=== PATIENT | female | born 1975 | race African-American/Black ===

== ENCOUNTER 2020-04-29 04:39 | Inpatient (IN) | payer OTHER ==
[~2020-04-29] VITALS: Ht 160 cm; Wt 58.1 kg
[2020-04-29] MEDS ORDERED: SODIUM CHLORIDE 0.9% 1,000 ML IV ONE (04:44)
[2020-04-29] MEDS ORDERED: LORAZEPAM 2MG/ML CPJ IV ONE (04:45)
[2020-04-29] MEDS ORDERED: LEVETIRACETAM 500MG PREMIX 100 ML IV ONE (04:45)
[2020-04-29] MEDS ORDERED: LORAZEPAM 2MG/ML CPJ ONE (04:53)
[2020-04-29 05:12] LABS: CHLORIDE 109 mEq/L (98-107)
[2020-04-29 05:15] LABS: BASOPHILS % 0.7 % (0.0-2.0); EOSINOPHILS % 0.4 % (0.0-5.0); HEMATOCRIT. 43.1 % (36.0-48.0); HEMOGLOBIN. 14.2 g/dL (12.0-16.0); LYMPHOCYTES % 38.1 % (20.0-50.0); MEAN CORPUSCULAR HEMOGLOBIN 30.8 pg (28.0-32.0); MEAN CORPUSCULAR VOLUME 93.7 fL (81.0-99.0); MEAN PLATELET VOLUME 8.7 fl (7.4-10.4); MONOCYTES % 4.6 % (2.0-8.0); NEUTROPHILS % 56.2 % (40.0-76.0); PLATELET 199 x1000/uL (130-400); RED CELL DISTRIBUTION WIDTH 14.3 % (11.6-14.6)
[2020-04-29 05:17] LABS: ETHANOL BLOOD < 10 mg/dL
[2020-04-29 05:19] LABS: CLARITY URINE CLOUDY (CLEAR); COLOR URINE YELLOW (YELLOW); KETONES URINE TRACE (NEGATIVE); LEUKOCYTE ESTERASE URINE NEGATIVE (NEGATIVE); NITRITE URINE NEGATIVE (NEGATIVE); OCCULT BLOOD URINE 2+ (NEGATIVE); PROTEIN URINE 2+ (NEGATIVE); SPECIFIC GRAVITY URINE 1.019 (1.005-1.030); UROBILINOGEN URINE 0.2 E.U./dL (0.2-1.0)
[2020-04-29 05:21] LABS: CREATINE KINASE 373 IU/L (26-192)
[2020-04-29 05:26] LABS: *AMPHETAMINES SCREEN URINE NEGATIVE (NEGATIVE); *BARBITURATES SCREEN URINE NEGATIVE (NEGATIVE); *BENZODIAZEPINES SCREEN URINE NEGATIVE (NEGATIVE)
[2020-04-29 05:27] LABS: *COCAINE SCREEN URINE NEGATIVE (NEGATIVE); METHADONE URINE SCREEN NEGATIVE (NEGATIVE); OPIATES URINE SCREEN NEGATIVE (NEGATIVE); PHENCYCLIDINE URINE SCREEN NEGATIVE (NEGATIVE)
[2020-04-29 05:29] LABS: CANNABINOID URINE SCREEN PRESUMTIVE POSITIVE (NEGATIVE)
[2020-04-29] MEDS ORDERED: ACETAMINOPHEN 325MG TABLET PO PRN (14:45)
[2020-04-29] MEDS ORDERED: CLONIDINE 0.1MG TABLET PO PRN (14:45)
[2020-04-29] MEDS ORDERED: IPRATROPIUM/ALBUTEROL 0.5-3(2.5)MG/3ML NEB HHN PRN (14:45)
[2020-04-29] MEDS ORDERED: ENOXAPARIN 40MG/0.4ML SYR SUBCUT SCH (16:00)
[2020-04-29 16:30] VITALS: BP 128/78
[2020-04-29 16:38] VITALS: BP 128/78
[2020-04-29] MEDS: ONDANSETRON HCL 4MG/2ML INJ IV PRN (17:35)
[2020-04-29] MEDS: HYDROCODONE/ACETAMINOPHEN 5/325MG TABLET PO PRN (19:51)
[2020-04-29 20:00] VITALS: BP 131/80
[2020-04-29] MEDS ORDERED: LEVETIRACETAM 500MG PREMIX 100 ML IV SCH (21:00)
[2020-04-29] MEDS: LORAZEPAM 2MG/ML CPJ IV PRN (21:01)
[2020-04-29] MEDS: LEVETIRACETAM 500MG PREMIX 100 ML IV SCH (22:10)
[2020-04-29 23:44] LABS: CREATINE KINASE 366 IU/L (26-192)
[2020-04-29 23:58] LABS: CHLORIDE 111 mEq/L (98-107)
[2020-04-30] VITALS: BP 109/108
[2020-04-30] MEDS: ONDANSETRON HCL 4MG/2ML INJ IV PRN (00:47)
[2020-04-30] MEDS: HYDROCODONE/ACETAMINOPHEN 5/325MG TABLET PO PRN (00:48)
[2020-04-30] MEDS: LORAZEPAM 2MG/ML CPJ IV PRN (02:44)
[2020-04-30 04:00] VITALS: BP 148/84
[2020-04-30 07:12] LABS: CHLORIDE 106 mEq/L (98-107)
[2020-04-30 07:20] LABS: LDL CHOLESTEROL 107 mg/dL (5-100)
[2020-04-30 07:22] LABS: CREATINE KINASE 367 IU/L (26-192); HDL CHOLESTEROL 73 mg/dL (40-59); T4 FREE 0.89 ng/dL (0.76-1.46)
[2020-04-30 07:34] LABS: BASOPHILS % 0.4 % (0.0-2.0); EOSINOPHILS % 0.2 % (0.0-5.0); HEMATOCRIT. 38.8 % (36.0-48.0); HEMOGLOBIN. 13.4 g/dL (12.0-16.0); LYMPHOCYTES % 22.2 % (20.0-50.0); MEAN CORPUSCULAR HEMOGLOBIN 30.8 pg (28.0-32.0); MEAN CORPUSCULAR VOLUME 89.2 fL (81.0-99.0); MEAN PLATELET VOLUME 8.8 fl (7.4-10.4); MONOCYTES % 6.4 % (2.0-8.0); NEUTROPHILS % 70.8 % (40.0-76.0); PLATELET 169 x1000/uL (130-400); RED BLOOD CELL COUNT 4.35 mill/uL (4.2-5.4); RED CELL DISTRIBUTION WIDTH 13.7 % (11.6-14.6)
[2020-04-30 08:00] VITALS: BP 118/72
[2020-04-30] MEDS: LEVETIRACETAM 500MG PREMIX 100 ML IV SCH (09:00)
== END 2020-04-30 10:35 | disposition left against medical advice (07) | DRG 53 ==
LOC: ER 04:39 → 6WST 05:25 → EDBEDREQTM 05:28 → ENRESERV 15:54
PROVIDERS: ADMIT Internal Medicine; ATTEND Internal Medicine
DX: G40.419 Other generalized epilepsy and epileptic syndromes, intractable, without status epilepticus (principal); M62.82 Rhabdomyolysis; S01.511A Laceration without foreign body of lip, initial encounter; X58.XXXA Exposure to other specified factors, initial encounter; F12.90 Cannabis use, unspecified, uncomplicated; Z59.0 Homelessness; Z91.14 Patient's other noncompliance with medication regimen; Y93.89 Activity, other specified; Y92.89 Other specified places as the place of occurrence of the external cause; Y99.8 Other external cause status
CPT/HCPCS: 36415; 80048; 80053; 80061; 80305; 80320; 81003; 82542; 82550; 82962; 84439; 84443; 84484; 85025; 93005; 99291; J1953; J2060; J2405; J7030; G0480